=== PATIENT | male | born 1995 | race Caucasian/White ===

== ENCOUNTER 2018-03-05 13:12 | Emergency (ER) | payer OTHER ==
[2018-03-05 13:23] VITALS: BP 105/67; PULSE 83; TEMP 98.1; BMI 23.7
--- NOTE | 2018-03-05 13:27 | PDOC ---
History of Present Illness - General Chief Complaint: Pain Stated Complaint: R KNEE PAIN Time Seen by Provider: 03/05/18 13:13 History Source: Patient Exam Limitations: No Limitations - History of Present Illness Initial Comments: 23 yo M no significant history presents with R knee pain since yesterday. He states he jumped while playing basketball, felt a pop as he landed. He has been unable to completely straighten his leg since then. He complains of pain to the inferior medial knee. Worse with standing, straightening, and attempting to bear weight. Denies instability. No weakness, numbness. Did not take anything for pain prior to arrival. Past History - Past Medical History Allergies/Adverse Reactions: Allergies Allergy/AdvReac Type Severity Reaction Status Date / Time No Known Allergies Allergy Unverified 03/05/18 13:13 Home Medications: Ambulatory Orders NK [No Known Home Medication] 03/05/18 COPD: No Other medical history: RIGHT ANKLE FRACTURE,LEFT HAND RING FINGER FRACTURE - Suicide/Smoking/Psychosocial Hx Smoking History: Never smoked Information on smoking cessation initiated: No Hx Alcohol Use: Yes (SOCIAL) Drug/Substance Use Hx: No Substance Use Type: Alcohol Review of Systems - Review of Systems Able to Perform ROS?: Yes Comments:: GENERAL/CONSTITUTIONAL: No fever or chills. No weakness. HEAD, EYES, EARS, NOSE AND THROAT: No change in vision. No ear pain or discharge. No sore throat. MUSCULOSKELETAL: +R knee pain. No joint or muscle swelling. No neck or back pain. SKIN: No rash *Physical Exam - Vital Signs Last Vital Signs Temp Pulse Resp BP Pulse Ox 98.1 F 83 16 105/67 98 03/05/18 13:13 03/05/18 13:13 03/05/18 13:13 03/05/18 13:13 03/05/18 13:13 - Physical Exam Comments: GENERAL: Awake, alert, and fully oriented, in no acute distress HEAD: No signs of trauma EYES: PERRLA, EOMI, sclera anicteric, conjunctiva clear EXTREMITIES: R knee with no effusion, no erythema, no warmth. Patella normal to palpation. Pain elicited to medial knee with Roxann's test. Remainder of extremities with normal range of motion, no edema. No clubbing or cyanosis. No cords, erythema, or tenderness NEUROLOGICAL: Cranial nerves II through XII grossly intact. Normal speech. Motor and sensation intact. Antalgic gait. SKIN: Warm, Dry, normal turgor, no rashes or lesions noted. Medical Decision Making - Medical Decision Making Will obtain knee XR, however, suspect this is more likely meniscus injury. NSAIDs, rest, elevation. *DC/Admit/Observation/Transfer Diagnosis at time of Disposition: Knee pain Qualifiers: Chronicity: acute Laterality: right Qualified Code(s): M25.561 - Pain in right knee - Discharge Dispostion Disposition: HOME Condition at time of disposition: Stable Decision to Admit order: No - Referrals - Patient Instructions - Post Discharge Activity
== END 2018-03-05 15:41 | disposition home or self-care (01) ==
LOC: FER 13:12
DX: M25.561 Pain in right knee (principal); X58.XXXA Exposure to other specified factors, initial encounter; Y93.67 Activity, basketball; Y92.310 Basketball court as the place of occurrence of the external cause
CPT/HCPCS: 73562-TC-RT-FY; 99282-25